=== PATIENT | female | born 1945 | race Two or more races ===

== ENCOUNTER 2017-09-09 14:05 | Emergency (ER) | payer OTHER ==
[~2017-09-09] VITALS: Ht 175.3 cm; Wt 59.0 kg
[~2017-09-09 14:05] MED LIST: AVALIDE 300-12.1 TA1 PO; AVAPRO75 MG; CARDURA1 MG PO; HYDROCHLOROTH12.5 M1 PO; MECLIZINE HCL25 MG PO; NORVASC10 MG PO; RELAGESIC 5001 EACH PO; RYTHMOL300 MG PO; TENORMIN25 MG PO
== END 2017-09-09 18:29 | disposition home or self-care (01) ==
LOC: ER 14:05
DX: S90.31XA Contusion of right foot, initial encounter (principal); W22.8XXA Striking against or struck by other objects, initial encounter; Y93.89 Activity, other specified; Y92.098 Other place in other non-institutional residence as the place of occurrence of the external cause; Y99.8 Other external cause status